=== PATIENT | female | born 1970 | race Asian ===

== ENCOUNTER 2022-12-24 17:10 | Emergency (ER) | payer OTHER ==
[2022-12-24 17:12] VITALS: BP 99/43
[2022-12-24] MEDS ORDERED: DEXTROSE 50%-WATER 25 GM/50 ML SYRINGE IVP ONE ×2 (17:26→17:58)
[2022-12-24] MEDS ORDERED: NOREPINEPHRINE 8 MG/D5%-WATER 250 ML IV ONE (17:36)
[2022-12-24 17:42] LABS: HEMATOCRIT 29.8 % (36-46); HEMOGLOBIN 8.7 g/dL (12.0-16.0); MEAN CORPUSCULAR HEMOGLOBIN 32.1 pg (26.0-34.0); MEAN CORPUSCULAR HGB CONC 29.3 G/dL (31.0-37.0); MEAN CORPUSCULAR VOLUME 110 fL (80-100); PLATELET COUNT (AUTO) 97 K/uL (150-450); RED BLOOD CELL COUNT(AUTO) 2.73 MIL/uL (4.00-5.20); RED CELL DISTRIBUTION WIDTH 18.1 % (11.5-14.5)
[2022-12-24] MEDS ORDERED: EPINEPHrine 1:10,000 [1 MG/10 ML] SYRINGE ONE ×2 (17:43→18:14)
[2022-12-24 17:49] LABS: ALANINE AMINOTRANSFERASE 643 U/L (12-78); ALBUMIN 2.4 g/dL (3.4-5.0); ALKALINE PHOSPHATASE 95 U/L (46-116); ANION GAP 22 mmol/L (8-16); ASPARTATE AMINOTRANSFERASE 855 U/L (15-37); BILIRUBIN,TOTAL 2.2 mg/dL (0.1-1.0); CARBON DIOXIDE 22 mmol/L (22-29); CHLORIDE 98 mmol/L (98-107); CREATININE 9.59 mg/dL (0.60-1.30); GLUCOSE,RANDOM 151 mg/dL (70-110); SODIUM SERUM 142 mmol/L (136-145); TOTAL PROTEIN, SERUM 5.8 g/dL (6.4-8.2); UREA NITROGEN, BLOOD 65 mg/dL (7-18)
[2022-12-24 17:55] LABS: GLOMERULAR FILTR. RATE CALC 4 mL/min (>60)
[2022-12-24 17:57] LABS: CALCIUM, TOTAL 16.2 mg/dL (8.8-10.5)
[2022-12-24 18:00] LABS: B-TYPE NATRIURETIC PEPTIDE 3520 pg/mL (0-100)
[2022-12-24 18:09] LABS: LACTIC ACID 16.1 mmol/L (0.4-2.0)
[2022-12-24] MEDS ORDERED: PROPOFOL 1000 MG/ISO-OSM 0 ML ONE (18:10)
[2022-12-24] MEDS ORDERED: MIDAZOLAM HCL 5 MG/ML VIAL ONE (18:11)
[2022-12-24] MEDS ORDERED: NOREPINEPHRINE 8 MG/D5%-WATER 250 ML IV PRN (18:15)
[2022-12-24] MEDS ORDERED: ALBUTEROL SULFATE 2.5 MG/0.5 ML NEB SOLUTION NEB ONE (18:30)
[2022-12-24] MEDS ORDERED: SODIUM BICARBONATE 100 MEQ in SODIUM CHLORIDE 0.9% 1,000 ML IV ONE (18:30)
[2022-12-24 18:56] LABS: BAND NEUTROPHILS % (MANUAL) 3 % (0-5); CORRECTED WHITE BLOOD COUNT 18.1 K/uL (4.5-11.0); EOSINOPHILS % (MANUAL) 1 % (1-6); LYMPHOCYTES % (MANUAL) 33 % (22-44); MONOCYTES % (MANUAL) 17 % (2-9); MYELOCYTES % 2 % (0-0); SEGMENTED NEUTROPHILS % 44 % (40-70)
== END 2022-12-24 22:00 ==
LOC: EMS 17:11
DX: I46.9 Cardiac arrest, cause unspecified (principal); E87.5 Hyperkalemia; R74.01 Elevation of levels of liver transaminase levels; D69.6 Thrombocytopenia, unspecified; J96.90 Respiratory failure, unspecified, unspecified whether with hypoxia or hypercapnia; E11.22 Type 2 diabetes mellitus with diabetic chronic kidney disease; N18.6 End stage renal disease; Z99.2 Dependence on renal dialysis
CPT/HCPCS: 36556; 80053; 83605; 83880; 84484; 85025; 85610; 85730; 36415; 94002; 71045; 93005; 31500; 99291; 92950; J0171; J3490; Q9967; J7030; J2250; J2704; J7613